=== PATIENT | female | born 1995 | race Caucasian/White ===

== ENCOUNTER 2018-12-12 14:38 | Emergency (ER) | payer OTHER ==
[2018-12-12] MEDS ORDERED: LORazepam 1 MG TAB PO ONE (14:55)
--- NOTE | 2018-12-12 14:55 | EDPHY ---
H & P Stated Complaint: increasing anxiety and panic attacks/just moved from [place] Time Seen by Provider: 12/12/18 14:50 HPI/ROS: HPI: This is a 23-year-old female presents with Chief Complaint: increasing anxiety and panic attacks/just moved from [place] Location: Psychiatric Quality: Anxiety and panic attacks Duration: Last several weeks Signs and Symptoms: no shortness of breath at rest, no shortness of breath on exertion, no cough, no chest pain, no palpitations, no lower extremity edema, no wheezing, no orthopnea, no paroxysmal nocturnal dyspnea, no fever, no injury/ trauma, no hemoptysis, no carpal pedal spasms Timing: Acute on chronic Severity: Moderate Context: Patient reports that for the last several weeks she has had increasing anxiety with panic attacks occurring several times per week. She reports that she recently moved to the area for employment reasons 6 weeks ago. She is taking citalopram for her depression and anxiety. She reports that since moving to a new area, starting a new job, getting settled, she has had increased stress. She denies suicidal ideation, homicidal ideation, hallucinations. Patient remotely speaks with her counselor via telemedicine but has not been able to in the last 4 weeks. She does not have a counselor or psychiatrist in the area. 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 Modifying Factors: Citalopram Comment: ROS: A comprehensive 10 system review of systems is otherwise negative aside from elements mentioned in the history of present illness. MEDICAL/SURGICAL/SOCIAL HISTORY: Medical history: Depression with anxiety. Panic attacks. Acne. Myrtle IUD in place. Does not have regular menses. Surgical history: Right hand surgery, bunionectomy Social history: Employed. CONSTITUTIONAL: Calm and cooperative, anxious, well-appearing young adult white female, awake and alert, no obvious distress HEENT: Atraumatic and normocephalic, PERRL, EOMI. Nares patent; no rhinorrhea; no nasal mucosal edema. Tympanic membranes clear. Oropharynx clear, no exudate and moist pink mucosa. Airway patent. No lymphadenopathy. No meningismus. Cardiovascular: Normal S1/S2, regular rate, regular rhythm, without murmur rub or gallop. PULMONARY/CHEST: Symmetrical and nontender. Clear to auscultation bilaterally. Good air movement. No accessory muscle usage. ABDOMEN: Soft, nondistended, nontender, no rebound, no guarding, no peritoneal signs, no masses or organomegaly. No CVAT. EXTREMITIES: 2/2 pulses, strength 5/5, no deformities, no clubbing, no cyanosis or edema. NEUROLOGICAL: no focal neuro deficits. GCS 15. SKIN: Warm and dry, no erythema. no rash. Good capillary refill. PSYCH: Good eye contact, no flight of ideas, organized thought process, good insight and judgment, no auditory hallucinations, no visual hallucinations, no suicidal ideation with a plan, no homicidal ideation, no paranoia Source: Patient Exam Limitations: No limitations - Personal History LMP (Females 10-55): IUD In Place Current Tetanus Diphtheria and Acellular Pertussis (TDAP): Yes - Medical/Surgical History Hx Asthma: No Hx Chronic Respiratory Disease: No Hx Diabetes: No Hx Cardiac Disease: No Hx Renal Disease: No Hx Cirrhosis: No Hx Alcoholism: No Hx HIV/AIDS: No Hx Splenectomy or Spleen Trauma: No Other PMH: r hand surg/bunionectomy anxiety - Social History Smoking Status: Never smoked Constitutional: Initial Vital Signs Temperature (C) 37.2 C 12/12/18 14:42 Heart Rate 66 12/12/18 14:42 Respiratory Rate 18 12/12/18 14:42 Blood Pressure 109/65 12/12/18 14:42 O2 Sat (%) 97 12/12/18 14:42 O2 Delivery Mode Room Air Allergies/Adverse Reactions: latex Allergy (Verified 12/12/18 14:41) Home Medications: Medication Instructions Recorded Citalopram 12/12/18 Mirena 12/12/18 Spironolactone 12/12/18 Medical Decision Making ED Course/Re-evaluation: Vital signs reviewed and stable upon arrival. Patient given p.o. Ativan 1 mg with complete resolution of symptoms. Does not meet M1 hold or [facility] criteria. Case management consult. Given an appointment for local counselor and psychiatrist. This patient was seen under the supervision of my secondary supervising physician. I evaluated care for this patient with attending. Differential Diagnosis: Differential diagnosis includes but is not limited to major depression, anxiety disorder, schizophrenia, bipolar disorder, intoxicant use, suicidal ideation, psychosis, ifeoma. - Data Points Medications Given: Discontinued Medications Lorazepam (Ativan) 1 mg PO EDNOW ONE Stop: 12/12/18 14:56 Last Admin: 12/12/18 14:59 Dose: 1 mg Departure - Departure Disposition: Home, Routine, Self-Care Clinical Impression: Depression with anxiety, Panic attack Condition: Good Instructions: Generalized Anxiety Disorder (ED), Panic Attack (ED) Additional Instructions: Please establish care with Mental Health provider. Continue to take citalopram and practice relaxation techniques. Referrals: [facility],. [Clinic] - As per Instructions Stand Alone Forms: Work Excuse
[2018-12-12 16:01] VITALS: BP 113/76
== END 2018-12-12 16:01 | disposition home or self-care (01) ==
DX: F41.0 Panic disorder [episodic paroxysmal anxiety] (principal); F41.8 Other specified anxiety disorders

== ENCOUNTER 2019-03-16 13:11 | Emergency (ER) | payer OTHER | END 2019-03-16 14:44 | disposition home or self-care (01) ==